=== PATIENT | male | born 1955 | race African-American/Black ===

== ENCOUNTER 2019-09-18 21:22 | Inpatient (IN) | payer MEDICARE, MEDICAID ==
[~2019-09-18] VITALS: Ht 167.6 cm; Wt 90.3 kg
[2019-09-18 22:52] LABS: MEAN CORPUSCULAR VOLUME 63.2 fL (80.0-94.0); MEAN PLATELET VOLUME 8.8 fl (7.4-10.4); PLATELET 170 x1000/uL (130-400); RED BLOOD CELL COUNT 3.35 mill/uL (4.7-6.1); RED CELL DISTRIBUTION WIDTH 20.4 % (11.6-14.6)
[2019-09-18 22:53] LABS: CHLORIDE 90 mEq/L (98-107)
[2019-09-18 22:56] LABS: HEMATOCRIT. 21.2 % (42.0-52.0); HEMOGLOBIN. 6.4 g/dL (14.0-18.0)
[2019-09-18] MEDS ORDERED: SODIUM CHLORIDE 0.9% 1,000 ML IV ONE ×2 (23:07→23:30)
[2019-09-18 23:19] LABS: NUCLEATED RED BLOOD CELLS 3 /100 WBC
[2019-09-18 23:20] LABS: PLATELET ESTIMATE NORMAL
[2019-09-19] VITALS (7 sets, daily range): BP systolic 137–162; BP diastolic 73–88
[2019-09-19 01:18] LABS: *AMPHETAMINES SCREEN URINE NEGATIVE (NEGATIVE); *BARBITURATES SCREEN URINE NEGATIVE (NEGATIVE); *BENZODIAZEPINES SCREEN URINE NEGATIVE (NEGATIVE); *COCAINE SCREEN URINE NEGATIVE (NEGATIVE); CANNABINOID URINE SCREEN PRESUMTIVE POSITIVE (NEGATIVE); METHADONE URINE SCREEN NEGATIVE (NEGATIVE); OPIATES URINE SCREEN PRESUMTIVE POSITIVE (NEGATIVE); PHENCYCLIDINE URINE SCREEN NEGATIVE (NEGATIVE)
[2019-09-19] MEDS ORDERED: ONDANSETRON HCL 4MG/2ML INJ IV PRN (05:15)
[2019-09-19] MEDS ORDERED: ACETAMINOPHEN 325MG TABLET PO PRN (08:45)
[2019-09-19] MEDS: SODIUM CHLORIDE 0.9% 1,000 ML IV SCH ×2 (09:00→22:20)
[2019-09-19] MEDS: PANTOPRAZOLE SODIUM 40 MG/VIAL IV SCH (09:54)
[2019-09-19 12:17] LABS: HEMATOCRIT 22.8 % (42.0-52.0); MEAN CORPUSCULAR HEMOGLOBIN 20.2 pg (28.0-32.0); MEAN CORPUSCULAR VOLUME 66.1 fL (80.0-94.0); PLATELET 148 x1000/uL (130-400); RED BLOOD CELL COUNT 3.45 mill/uL (4.7-6.1); RED CELL DISTRIBUTION WIDTH 23.2 % (11.6-14.6)
[2019-09-19 12:46] LABS: TOTAL IRON BINDING CAPACITY 672 ug/dL (250-450)
[2019-09-19] MEDS: THIAMINE HCL 100MG TABLET PO SCH (19:04)
[2019-09-19 20:36] LABS: HEMATOCRIT 26.4 % (42.0-52.0); HEMOGLOBIN 8.3 g/dL (14.0-18.0)
[2019-09-19 21:51] LABS: PARTIAL THROMBOPLASTIN TIME 26.1 sec (23.4-31.0)
[2019-09-20] VITALS: BP 156/72
[2019-09-20 04:00] VITALS: BP 157/71
[2019-09-20 08:00] VITALS: BP 153/114
[2019-09-20 09:38] LABS: BASOPHILS % 0.8 % (0.0-2.0); EOSINOPHILS % 1.2 % (0.0-5.0); HEMATOCRIT. 26.9 % (42.0-52.0); HEMOGLOBIN. 8.5 g/dL (14.0-18.0); LYMPHOCYTES % 17.1 % (20.0-50.0); MEAN CORPUSCULAR HEMOGLOBIN 21.9 pg (28.0-32.0); MEAN CORPUSCULAR VOLUME 69.7 fL (80.0-94.0); MEAN PLATELET VOLUME 8.5 fl (7.4-10.4); MONOCYTES % 9.8 % (2.0-8.0); NEUTROPHILS % 71.1 % (40.0-76.0); PLATELET 131 x1000/uL (130-400); RED BLOOD CELL COUNT 3.86 mill/uL (4.7-6.1); RED CELL DISTRIBUTION WIDTH 25.5 % (11.6-14.6)
[2019-09-20 09:43] LABS: CHLORIDE 103 mEq/L (98-107)
[2019-09-20] MEDS: PANTOPRAZOLE SODIUM 40 MG/VIAL IV SCH (09:49)
[2019-09-20] MEDS: THIAMINE HCL 100MG TABLET PO SCH (09:50)
[2019-09-20 12:00] VITALS: BP 148/61
[2019-09-20] MEDS: SODIUM CHLORIDE 0.9% 1,000 ML IV SCH (12:54)
[2019-09-20] MEDS: IRON SUCROSE COMPLEX 100 MG/5 ML ML IV SCH (12:55)
[2019-09-20] MEDS: AMLODIPINE 5MG TABLET PO SCH ×2 (12:58→21:05)
[2019-09-20 15:04] LABS: HEPATITIS B SURFACE ANTIGEN NEGATIVE
[2019-09-20 15:33] LABS: HEPATITIS A AB IGM NEGATIVE (NEGATIVE)
[2019-09-20 16:00] VITALS: BP_SYST 143; BP_SYST 172; BP_DIAS 76; BP_DIAS 88
[2019-09-20] MEDS ORDERED: SORBITOL 70% SOLN 30ML PO SCH ×2 (16:00→20:00)
[2019-09-20 20:00] VITALS: BP 155/95
[2019-09-21] VITALS (7 sets, daily range): BP systolic 120–153; BP diastolic 70–82
[2019-09-21 07:08] LABS: INR 1.1; PARTIAL THROMBOPLASTIN TIME 28.5 sec (23.4-31.0); PROTHROMBIN TIME 11.8 sec (9.6-11.0)
[2019-09-21 07:23] LABS: HEMATOCRIT. 27.7 % (42.0-52.0); HEMOGLOBIN. 8.6 g/dL (14.0-18.0); MEAN CORPUSCULAR HEMOGLOBIN 21.8 pg (28.0-32.0); MEAN PLATELET VOLUME 8.8 fl (7.4-10.4); PLATELET 127 x1000/uL (130-400); RED BLOOD CELL COUNT 3.96 mill/uL (4.7-6.1); RED CELL DISTRIBUTION WIDTH 26.4 % (11.6-14.6)
[2019-09-21 08:13] LABS: CHLORIDE 109 mEq/L (98-107)
[2019-09-21] MEDS: AMLODIPINE 5MG TABLET PO SCH (09:00)
[2019-09-21] MEDS: THIAMINE HCL 100MG TABLET PO SCH (09:00)
[2019-09-21] MEDS: PANTOPRAZOLE SODIUM 40 MG/VIAL IV SCH (09:38)
[2019-09-21] MEDS: IRON SUCROSE COMPLEX 100 MG/5 ML ML IV SCH (09:38)
[2019-09-21] MEDS ORDERED: MIDAZOLAM HCL 5 MG/5 ML VIAL ONE ×2 (10:32→11:13)
[2019-09-21] MEDS ORDERED: FENTANYL CITRATE/PF 50MCG/ML 2ML VIAL ONE (10:33)
[2019-09-21] MEDS ORDERED: MIDAZOLAM HCL 5 MG/5 ML VIAL IV PRN (10:46)
[2019-09-21] MEDS ORDERED: FENTANYL CITRATE/PF 50MCG/ML 2ML VIAL IV PRN (10:47)
[2019-09-21] MEDS ORDERED: OMEP20TA2 MT (11:35)
[2019-09-21] MEDS ORDERED: DOCU250C14 MT (11:35)
[2019-09-21] MEDS ORDERED: AMLO5TAB88 MT (11:35)
[2019-09-21] MEDS ORDERED: FERR325T6 MT (11:35)
[2019-09-21] MEDS ORDERED: FERROUS SULFATE 325MG TABLET PO SCH (12:15)
[2019-09-21 16:26] LABS: PLATELET ESTIMATE DECREASED
[2019-09-21] MEDS ORDERED: FAMOTIDINE 20MG TABLET PO SCH (17:00)
== END 2019-09-21 16:45 | disposition home or self-care (01) | DRG 392 ==
LOC: ER 21:22 → 5WST 09-19 00:19 → EDBEDREQDT 09-19 00:28 → EDBEDREQ 09-19 00:28 → EDBEDREQTM 09-19 00:28 → ENRESERV 09-19 02:46
PROVIDERS: ADMIT Internal Medicine; ATTEND Internal Medicine
PROC: 30233N1 Transfusion of Nonautologous Red Blood Cells into Peripheral Vein, Percutaneous Approach (ICD-10-PCS; principal; 2019-09-19)
PROC: 0DB68ZX Excision of Stomach, Via Natural or Artificial Opening Endoscopic, Diagnostic (ICD-10-PCS; 2019-09-21)
PROC: 0DJD8ZZ Inspection of Lower Intestinal Tract, Via Natural or Artificial Opening Endoscopic (ICD-10-PCS; 2019-09-21)
DX: K29.70 Gastritis, unspecified, without bleeding (principal); E87.1 Hypo-osmolality and hyponatremia; D50.9 Iron deficiency anemia, unspecified; E87.8 Other disorders of electrolyte and fluid balance, not elsewhere classified; F10.10 Alcohol abuse, uncomplicated; F12.90 Cannabis use, unspecified, uncomplicated; N28.1 Cyst of kidney, acquired; F17.210 Nicotine dependence, cigarettes, uncomplicated; K76.0 Fatty (change of) liver, not elsewhere classified; D72.821 Monocytosis (symptomatic); K44.9 Diaphragmatic hernia without obstruction or gangrene; K22.2 Esophageal obstruction; K70.9 Alcoholic liver disease, unspecified; Z71.41 Alcohol abuse counseling and surveillance of alcoholic; Q82.5 Congenital non-neoplastic nevus
CPT/HCPCS: 36415; 71045; 74176; 80048; 80053; 80305; 82728; 83540; 83550; 83880; 84484; 85014; 85018; 85025; 85027; 85049; 85384; 86677; 86705; 86709; 86803; 86850; 86900; 86920; 87340; 87804; 88305; 88312; 88313; 93005; 99152; 99153; 99285; C9113; J2250; J3010; J7030; P9016; G0500